=== PATIENT | female | born 1980 | race Asian ===

== ENCOUNTER 2019-06-12 12:30 | Day surgery (SDC) | payer OTHER ==
[~2019-06-12] VITALS: Ht 162.6 cm; Wt 59.0 kg
[~2019-06-12 12:30] MED LIST: CEFAZOLIN SOD 1 GM in D5W 50 ML IV ONE
[2019-06-12 12:43] LABS: HCG,QUAL RESULT NEGATIVE (NEGATIVE)
[2019-06-12] MEDS ORDERED: BUPIVACAINE LIPOSOME/PF 266 MG/20 ML VIAL INFIL ONE (14:31)
[2019-06-12] MEDS ORDERED: SEVOFLURANE 15 MIN GAS INH ONE (14:45)
[2019-06-12] MEDS ORDERED: ONDANSETRON HCL 4 MG/2 ML VIAL IVP ONE (14:45)
[2019-06-12] MEDS ORDERED: fentaNYL CITRATE 250 MCG/5 ML AMP IV ONE (14:45)
[2019-06-12] MEDS ORDERED: NS IRRIG SOLN 1000 ML IR ONE (14:45)
[2019-06-12] MEDS ORDERED: MIDAZOLAM HCL 5 MG/5 ML VIAL IVP ONE (14:45)
[2019-06-12] MEDS ORDERED: ROCURONIUM BROMIDE 10 MG/ML (ZEMURON) IV ONE (14:45)
[2019-06-12] MEDS ORDERED: METOCLOPRAMIDE HCL 10 MG/2 ML VIAL IVP ONE (14:45)
[2019-06-12] MEDS ORDERED: LR 1,000 ML IV.SOLN IV ONE (14:45)
[2019-06-12] MEDS ORDERED: PROPOFOL 200MG/ 20ML VIAL (DIPRIVAN) IV ONE (14:45)
[2019-06-12] MEDS ORDERED: IOHEXOL 50 ML IV ONE (15:11)
[2019-06-12] MEDS ORDERED: LR 1,000 ML IV SCH (15:52)
[2019-06-12] MEDS ORDERED: HYDROmorphone 1 MG INJ. 1 MG/ML AMPUL IVP PRN ×2 (16:00)
[2019-06-12] MEDS ORDERED: HYDROmorphone 2 MG/ML VIAL IVP PRN (16:00)
[2019-06-12] MEDS ORDERED: ONDANSETRON HCL 4 MG/2 ML VIAL IVP PRN ×2 (16:00→16:30)
[2019-06-12] MEDS: KETOROLAC TROMETHAMINE 15 MG VIAL IVP ONE ×2 (16:45→17:15)
[2019-06-12] MEDS ORDERED: KETOROLAC TROMETHAMINE 30 MG VIAL ONE (16:58)
[2019-06-12 17:53] VITALS: BP_SYST 111
[2019-06-12] MEDS ORDERED: MORPHINE 4 MG/ML INJ. SYRINGE IVP PRN (18:00)
[2019-06-12] MEDS ORDERED: ONDANSETRON HCL 4 MG/2 ML VIAL ONE (19:20)
== END 2019-06-12 19:30 | disposition home or self-care (01) ==
LOC: SDS 12:30 → SMU 13:02 → SDS 19:30
PROVIDERS: ATTEND Surgery
DX: K80.10 Calculus of gallbladder with chronic cholecystitis without obstruction (principal)
CPT/HCPCS: 47563; 74300; 82962; 84703; 88304; C1727; C9290; J0690; J1885; J2250; J2405; J2704; J2765; J3010; J7060; J7120; Q9967